=== PATIENT | female | born 1965 | race Two or more races ===

== ENCOUNTER 2024-08-19 09:35 | Inpatient (IN) | payer MEDICAID, OTHER ==
[~2024-08-19] VITALS: Ht 170.2 cm; Wt 77.7 kg
--- NOTE | 2024-08-19 09:50 | ED.PDOC ---
History of Present Illness HPI Comments 59F BIBA w/ prior Mhx of Asthma;SHx of Tonsillectomy, Bladder lift, Full Hysterectomy, Left foot Sx, right Artery Sx and the c/c of LE. Pt reports that she was praying, on her knees, and as she wastrying to get up she heard a pop on the right knee, which all happened at 0850 today. EMS note that initially on scene the pt had a pain of 20/10, but was given 500mg IM and brought the pain down to a 10/10. Family Hx of Cancer. Denies chills, fever, N/V/D, SOB, CP. No other associated symptoms, modifiers, recent injuries or sick contacts present at this time. Time Seen by MD: 09:40 Reviewed Notes: Nurses Notes, Java Web Architect Notes, Medications, Allergies Allergies: Coded Allergies: Hydrocodone (Verified Allergy, Unknown, 08/19/24) Information Source: Patient, Emergency Med Personnel Mode of Arrival: EMS Severity: Moderate Timing: Minutes Duration: Since onset, Minutes Prehospital treatment: Pain Meds (500mg of Fent) Past Medical History PAST MEDICAL HISTORY: Asthma Surgical History: Hysterectomy (Full), Tonsillectomy Surgical History (Other): Bladder Lift, "Right Side Artery Sx", Left foot Sx TOOL SUPERVISOR History: No Pertinent TOOL SUPERVISOR History Family History Family History: Reviewed,noncontributory to illness, Family hx of Cancer Social History Smoker: Non-Smoker Alcohol: Denies ETOH Use Drugs: Denies Drug Use Lives In: Home Constitutional: reports: others (Right knee pain); denies: chills, diaphoresis, fatigue, fever, malaise, sweats, weakness EENTM: denies: blurred vision, double vision, ear bleeding, ear discharge, ear drainage, ear pain, ear ringing, eye pain, eye redness, hearing loss, mouth pain, mouth swelling, nasal discharge, nose bleeding, nose congestion, nose pain, photophobia, tearing, throat pain, throat swelling, voice changes, others Respiratory: denies: cough, hemoptysis, orthopnea, SOB at rest, shortness of breath, SOB with excertion, stridor, wheezing, others Cardiovascular: denies: chest pain, dizzy spells, diaphoresis, Dyspnea on exertion, edema, irregular heart beat, left arm pain, lightheadedness, palpitations, PND, syncope, others Gastrointestinal: denies: abdomen distended, abdominal pain, blood streaked bowels, constipated, diarrhea, dysphagia, difficulty swallowing, hematemesis, melena, nausea, poor appetite, poor fluid intake, rectal bleeding, rectal pain, vomiting, others Genitourinary: denies: abnormal vagina bleeding, burning, dyspareunia, dysuria, flank pain, frequency, hematuria, incontinence, pain, , vagina discharge, urgency, others Neurological: denies: dizziness, fainting, headache, left sided numbness, left sided weakness, numbness, paresthesia, pre-existing deficit, right sided numbness, right sided weakness, seizure, speech problems, tingling, tremors, weakness, others Musculoskeletal: reports: joint pain, joint swelling; denies: back pain, gout, muscle pain, muscle stiffness, neck pain, others Integumetry: denies: bruises, change in color, change in hair/nails, dryness, laceration, lesions, lumps, rash, wounds, others Allergic/Immunocompromised: denies: Difficulty Healing, Frequent Infections, Hives, Itching, others Hematologic/Lymphatic: denies: anemia, blood clots, easy bleeding, easy bruising, swollen glands, others Endocrine: denies: excessive hunger, excessive sweating, excessive thirst, excessive urination, flushing, intolerance to cold, intolerance to heat, unexplained weight gain, unexplained weight loss, others Psychiatric: denies: anxiety, bipolar disorder, depression, hopeless, panic disorder, schizophrenia, sleepless, suicidal, others All Other Systems: Reviewed and Negative Physical Exam General Appearance: Moderate Distress HEENT: Normal ENT Inspection, Pharynx Normal, TMs Normal Neck: Full Range of Motion, Non-Tender, Normal, Normal Inspection Respiratory: Chest Non-Tender, Lungs Clear, No Accessory Muscle Use, No Respiratory Distress, Normal Breath Sounds Cardiovascular: No Edema, No JVD, No Murmur, No Gallop, Normal Peripheral Pulses, Regular Rate/Rhythm Breast Exam: Deferred Gastrointestinal: No Organomegaly, Non Tender, No Pulsatile Mass, Normal Bowel Sounds, Soft Genitalia: Deferred Pelvic: Deferred Rectal: Deferred Extremities: No calf tenderness, Normal capillary refill, No pedal edema Musculoskeletal : Location: Right Extremity Location: Knee Apperance: Swelling, Limited ROM, Tenderness: Severe Neurologic: Alert, machined parts quality inspector II-XII nml as Tested, No Motor Deficits, Normal Affect, Normal Mood, No Sensory Deficits Cerebellar Function: Normal Reflexes: Normal Skin: Dry, Normal Color, Warm Lymphatic: No Adenopathy Was a procedure done? Was a procedure done?: No Differential Dx Considerations may include: Fracture, strain, dislocation, contusion X-Ray, Labs, Meds, VS Vital Signs Date Time Temp Pulse Resp B/P (MAP) Pulse Ox O2 Delivery O2 Flow Rate FiO2 08/19/24 15:01 70 12 101/57 (72) 97 08/19/24 14:25 66 14 113/70 08/19/24 13:43 72 15 113/70 08/19/24 12:00 69 08/19/24 11:50 68 12 116/79 08/19/24 11:16 98.0 70 18 107/74 (85) 96 98.0 08/19/24 11:16 70 20 98 Room Air* 0 21 08/19/24 11:08 67 20 107/74 08/19/24 09:48 98.1 77 16 165/100 (121) 98 98.1 Current Medications Medications (Trade) Dose Ordered Sig/Linda Route Start Time Stop Time Status Last Admin Morphine Sulfate 4 mg ONCE ONCE IV 08/19/24 09:45 08/19/24 09:46 DC 08/19/24 11:08 Ondansetron HCl (Zofran) 4 mg ONCE ONCE IV 08/19/24 09:45 08/19/24 09:46 DC 08/19/24 11:08 Hydromorphone HCl (Dilaudid Injection) 0.5 mg ONCE ONCE IV 08/19/24 13:15 08/19/24 13:16 DC 08/19/24 13:43 Ondansetron HCl (Zofran) 4 mg ONCE ONCE IV 08/19/24 13:15 08/19/24 13:16 DC 08/19/24 13:42 CAT scan of the right knee shows: IMPRESSION: 1. No acute fracture or traumatic malalignment. 2. Mild tricompartment osteoarthritis. 3. Trace joint effusion. [facility] An orthopedic consult will be obtained We attempted to give the patient morphine and Zofran for the pain but the pain is somewhat persistent. The patient was now being given Dilaudid IV push for the pain. At this time, the patient was now given Zofran 4 mg IV push At this time, the patient was being admitted. Images Reviewed?: Images reviewed and evaluated by me Time of 1ST Reevaluation: 10:10 Reevaluation 1ST: Unchanged Patient Education/Counseling: Diagnosis, Treatment, Prognosis Family Education/Counseling: No Family Present Departure 1 Departure Time of Disposition: 16:27 Impression: Primary Impression: Derangement of right knee Disposition: ADMITTED INPATIENT Admit to: Med Surg Condition: Fair Critical Care Note Critical Care Time?: No Stability Stability form required: Yes Unstable for transfer: ED Physician Assesment (Clinical assesment) Heart Score Heart Score: Heart Score Response (Comments) Value History N/A 0 EKG N/A 0 Age N/A 0 Risk Factors N/A 0 Troponin N/A 0 Total 0 I personally scribed for NEIL BARBOZA MD ([email or web address]) on 08/19/24 at 09:50. Electronically submitted by Mateo Carpenter ([email or web address]). NEIL BARBOZA MD August 19, 2024 09:50
[2024-08-19] MEDS: MORPHINE SULFATE 4 MG/ML SYR/VIAL IV ONE (11:08)
[2024-08-19] MEDS: ONDANSETRON HCL 4 MG/2 ML VIAL IV ONE ×2 (11:08→13:42)
[2024-08-19 11:16] VITALS: PULSE 70; RESP 20; O2SAT 98
--- NOTE | 2024-08-19 11:20 | DVH ---
INDICATION: right knee pain COMPARISON: None TECHNIQUE: CT of the right knee was performed without contrast. Volume transverse images were obtain ed and reconstructed in multiple planes using bone and soft tissue algorithms. All CT scans at this medical facility are performed using dose modulation techniques as appropriate t o a performed exam including the following: Automated exposure control was utilized; adjustment of th e MA and/or KV according to patient size; and use of iterative reconstruction technique. CONTRAST: None Radiation Dose Information: CTDI volume is 25.05 mGy. Dose-length product is 990.75 mGy*cm FINDINGS: Normal mineralization and alignment. Joint spaces preserved. There is no acute fracture. Minimal tri compartment osteophyte formation. Very mild degenerative medial and lateral compartment joint space n arrowing. The Muscle bundles about the right knee are intact. Trace joint effusion. The tendons and l igaments are grossly intact although not optimally evaluated by CT. IMPRESSION: 1. No acute fracture or traumatic malalignment. 2. Mild tricompartment osteoarthritis. 3. Trace joint effusion.
[2024-08-19] MEDS: HYDROmorphone HCL 2 MG/ML VL/or syr IV ONE (13:43)
[2024-08-19] MEDS ORDERED: ONDANSETRON HCL 4 MG/2 ML VIAL IV PRN (16:15)
[2024-08-19] MEDS ORDERED: MORPHINE SULFATE INJ 2 MG/ml SYRG IV PRN (16:15)
[2024-08-19] MEDS ORDERED: NITROGLYCERIN 0.4 MG SL TAB SL PRN (16:15)
[2024-08-19] MEDS ORDERED: HYDROcodone-ACET 5/325MG TAB PO PRN (16:15)
[2024-08-19 18:39] VITALS: BP 149/83; PULSE 87; RESP 18; TEMP 98.3; O2SAT 98
[2024-08-19 20:00] VITALS: PULSE 69; RESP 16; O2SAT 98
[2024-08-19 21:00] VITALS: BP 152/83; PULSE 69; RESP 16; TEMP 98; O2SAT 98
[2024-08-19] MEDS: MORPHINE SULFATE INJ 2 MG/ml SYRG IV PRN (21:01)
[2024-08-20] VITALS (16 sets, daily range): BP systolic 104–152; BP diastolic 67–85; PULSE 65–90; RESP 16–22; TEMP 98–98.8; O2SAT 95–100
[2024-08-20] MEDS: ALBUTEROL SULF 2.5 MG/0.5ML(0.5%) NEB SOLN NEB PRN (00:35)
--- NOTE | 2024-08-20 03:46 | DVHHP2 ---
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 Endorsed she kneeled down to pray and suddenly could not get back up. Pain is sharp 10/10. Endorses swelling tenderness to the knee. Was placed in an immobilizer in the emergency department. Patient denies any past medical history of osteoarthritis, traumatic knee injury or fall. Cardiovascular: CAD, hyperipidemia Pulmonary: Asthma Smoke: No ALCOHOL: none Drugs: None Lives: with Family Review of Systems Constitutional: No: Fever, Chills, Sweats, Weakness, Malaise, Other Eyes: No: Pain, Vision change, Conjunctivae inflammation, Eyelid inflammation, Other, Redness ENT: No: Ear pain, Ear discharge, Nose pain, Nose discharge, Nose congestion, Mouth pain, Mouth swelling, Throat pain, Throat swelling, Other Respiratory: No: Cough, Dry, Shortness of breath, SOB with excertion, Wheezing, Hemoptysis, Pleuritic Pain, Sputum, Wheezing, Other Cardiovascular: No: Chest Pain, Palpitations, Orthopnea, Paroxysmal Noc. Dyspnea, Edema, Lt Headedness, Other Gastrointestinal: No: Nausea, Vomiting, Abdominal Pain, Diarrhea, Constipation, Melena, Hematochezia, Other Genitourinary: No Dysuria, No Frequency, No Incontinence, No Hematuria, No Retention, No Other Musculoskeletal: leg pain; No: other, neck pain, shoulder pain, arm pain, back pain, hand pain, foot pain Skin: No: Rash, Lesions, Jaundice, Bruising, Other Neurological: No: Weakness, Numbness, Incoordination, Change in speech, Confusion, Seizures, Other Allergies: Coded Allergies: Hydrocodone (Verified Allergy, Unknown, 08/19/24) Medications Current Medications Medications Dose Ordered Sig/Linda Route Start Time Stop Time Status Last Admin Dose Admin Nitroglycerin 0.4 mg Q5MINP PRN SL 08/19/24 16:15 Morphine Sulfate 2 mg Q30M PRN IV 08/19/24 16:15 Acetaminophen/ Hydrocodone Bitart 1 tab Q4HPRN PRN PO 08/19/24 16:15 Morphine Sulfate 2 mg Q4HPRN PRN IV 08/19/24 16:15 5/4/25 21:01 2 MG Ondansetron HCl 4 mg Q6HPRN PRN IV 08/19/24 16:15 Acetaminophen 650 mg Q4HP PRN PO 08/19/24 16:15 Enoxaparin Sodium 40 mg DAILY SC 08/20/24 10:00 Future Hold Albuterol 2.5 mg Q4HPRN PRN NEB 08/20/24 00:30 08/20/24 00:35 2.5 MG Exam Vital Signs Vital Signs Date Time Temp Pulse Resp B/P (MAP) Pulse Ox O2 Delivery O2 Flow Rate FiO2 08/20/24 00:58 98.2 65 16 118/67 (84) 96 98.2 08/20/24 00:35 Nasal Cannula* 3 32 General Appearance: Alert, Oriented X3, Cooperative, mild distress HEENT: Atraumatic, PERRLA, EOMI Respiratory: Clear to auscultation, Normal air movement Cardiovascular: Regular rate, Normal S1, Normal S2 Abdominal: Normal bowel sounds, Soft, No tenderness Extremities: No clubbing, Normal pulses, Other (Knee in immobilizer. Mild swelling medially, tender to palpation medially) Skin: No rashes, No breakdown Neuro: Normal speech Psych/Mental Status: Mental status NL, Mood NL Assessment/Plan Assessment/Plan Right Knee pain Hx Asthma Plan Admit medical floor Ortho consult MRI rt knee As needed analgesia PT evaluation Bronchodilators. As needed supplemental O2 to maintain O2 saturation greater Than 93%. DVT ppx lovenox Plan discussed with: Patient My Orders Orders - FORD PERRY NP Procedure Category Date Status Time Albuterol Medneb PHA 08/20/24 In Process (Ventolin Medneb) 00:30 Date of Service: August 20, 2024 Billing Provider: FERNANDO DYER MD Common Visit Codes: NOT BILLABLE FERNANDO DYER MD 08/20/24 1628: Review of Systems Allergies: Coded Allergies: Hydrocodone (Verified Allergy, Unknown, 08/19/24) Assessment/Plan Assessment/Plan Patient's chart is reviewed and discussed with the nurse practitioner. Patient is seen and evaluated by me today. I agree with the nurse practitioner's evaluation, documentation, assessment and care plan as outlined. FORD PERRY NP August 20, 2024 03:46 FERNANDO DYER MD August 20, 2024 16:28
[2024-08-20] MEDS: ACETAMINOPHEN 325 MG TAB PO PRN (05:30)
[2024-08-20] MEDS ORDERED: ENOXAPARIN SOD 40 MG/0.4 ML SYRINGE SC SCH (10:00)
--- NOTE | 2024-08-20 11:28 | DVH ---
CLINICAL HISTORY: right knee pain COMPARISON: CT dated 08/19/2024. TECHNIQUE: Multisequence multiplanar MRI images of the right knee were obtained without contrast. FINDINGS: Cruciate ligaments: ACL and PCL are intact and otherwise unremarkable. Extensor mechanism: Quadriceps mechanism and patellar tendon are intact. [id number] edema in th e superolateral aspect of Hoffa's fat pad, may be sequela of impingement. Collateral ligaments: Mild edema and small amount of fluid along the superficial fibers of the medial collateral ligament, consistent with a grade 1 sprain in the appropriate clinical setting. Menisci: Intrasubstance signal in the body and posterior horn of the medial meniscus without definite extension to the articular surface to suggest tear, likely intrasubstance degeneration. Intrasubstan ce signal in the body and anterior horn of the lateral meniscus without visualized extension to the a rticular surface to suggest tear, likely intrasubstance degeneration. Cartilage: Chondral fraying [id number] fissuring of the weight-bearing zone of the medial femor al condyle. Chondral fraying and fissuring in the patella involving the median ridge. Chondral thinni ng of the lateral patellar facet with adjacent subchondral cystic change. Bones: No acute fracture or focal marrow contusion Joint fluid: Small joint effusion. Other: Motion artifact limits evaluation. Some sequences were repeated. IMPRESSION: 1. Motion artifact limits evaluation. 2. Findings consistent with grade 1 sprain of the MCL. 3. Intrasubstance degeneration in the medial and lateral menisci without visualized extension to the articular surface to suggest tear 4. Edema in the superolateral aspect of Hoffa's fat pad, may be sequela of impingement. 5. 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 6. Small joint effusion.
[2024-08-20 17:32] LABS: Basophils # (auto) 0 10 ^3/uL (0-0.2); Basophils % (auto) 0.6 % (0.0-2.0); Eosinophils # (auto) 0.1 10 ^3/uL (0-0.8); Eosinophils % (auto) 1.9 % (0.0-7.0); Hematocrit 41.7 % (36.0-46.0); Hemoglobin 14.1 g/dL (12.2-16.2); Lymphocytes # (auto) 2.2 10 ^3/uL (0.4-5.4); Mean Corpuscular Hemoglobin 29.5 pg (28.0-32.0); Mean Corpuscular Hgb Conc. 33.7 g/dL (32.0-36.0); Mean Corpuscular Volume 87.5 fL (80.0-100.0); Monocytes # (auto) 0.3 10 ^3/uL (0-1.3); Monocytes % (auto) 5.7 % (0.0-12.0); Neutrophils # (auto) 3.2 10 ^3/uL (1.6-8.6); Neutrophils % (auto) 53.8 % (37.0-80.0); Platelet Count (auto) 179 10^3/uL (140-450); Red Blood Cells 4.77 10^6/uL (4.0-5.20); Red Cell Distribution Width 14.6 % (11.8-14.3); White Blood Cell 5.9 10^3/uL (4.4-10.8)
[2024-08-20 17:49] LABS: Alanine Aminotransferase 24 U/L (7-40); Albumin 4.3 g/dL (3.2-4.8); Anion Gap 9 (5-15); Aspartate Aminotransferase 21 U/L (13-40); BUN/Creatinine Ratio 17.1 (10.0-20.0); Bilirubin, Total 0.5 mg/dL (0.2-1.0); Blood Urea Nitrogen 12 mg/dL (9-23); Calcium 9.8 mg/dL (8.7-10.4); Carbon Dioxide 24 mmol/L (20-31); Chloride 107 mmol/L (98-107); Glucose 104 mg/dL (74-106); Potassium 3.8 mmol/L (3.5-5.1); Sodium 140 mmol/L (136-145); Total Protein 6.9 g/dL (5.7-8.2)
[2024-08-20 18:31] LABS: Alkaline Phosphatase 118 U/L (46-116)
--- NOTE | 2024-08-20 20:32 | DVHINCON2 ---
Consult Note Consult Consult Note Patient: 59-year-old female Reason for Consult: Right knee pain following mechanical injury --- History of Present Illness: Patient is a 59-year-old female admitted under the inpatient medicine service who was evaluated today by the orthopedic consult service for right knee pain. The patient reports that the pain started after kneeling to pray and attempting to stand, during which she experienced a pop in her right knee followed by acute pain. She localizes the majority of the pain to the medial aspect of the knee with some anterior involvement as well. She denies any sensation of instability, locking, or catching. No prior similar injuries reported. No other joint pain, No numbness/tingling or LE weakness reported. --- Review of Systems: Musculoskeletal: Right knee pain as above Neurologic: Denies numbness or tingling Constitutional: No fevers or chills --- Physical Exam: Inspection: Mild swelling noted in the right knee Palpation: Tenderness over medial joint line, lateral joint line, and retropatellar region. Point tenderness noted along the MCL Range of Motion: Within functional limits, mildly painful with flexion Special Tests: SLR: Intact against gravity Patellar tendon: Intact Ligamentous: LCL, MCL, PCL stable on valgus/varus and posterior drawer testing b ut TTP MCL Origin and insertion aspect Martin: Positive on the medial side Neurovascular: Distal pulses palpable, sensation intact MRI Right knee : Findings consistent with grade 1 sprain of the MCL. Intrasubstance degeneration in the medial and lateral menisci without visualized extension to the articular surface to suggest tear,edema in the superolateral aspect of Hoffa's fat pad, may be sequela of impingement.[id number] chondromalacia of the medial and patellofemoral compartments.Small joint effusion. CT Right knee : tricompartmental Knee OA --- Impression: Right knee pain, likely internal derangement. Positive Martin and medial joint line tenderness raise concern for medial meniscus tear. Ligamentous exam otherwise stable. Given the acute mechanism and exam findings, a meniscal injury is most likely. Alos, TTP MCL aspect raises concerns for MCL Sprain. --- Plan: Continue activity modification and NSAIDs as needed for pain Recommend knee Hinge brace for support as tolerated, WBAT W/ crutches Outpatient follow-up with orthopedic clinic within 12 weeks or sooner based on imaging Physical therapy to be considered once pain improves Pain management per Hospitalist /Medicine team --- Plan discussed with: Patient, Other (bedside nurse) Visit Coding Surgery Date of Service if different f: August 20, 2024 Billing Provider: IVIS WISEMAN Surgery Visit Codes: 76325 - INP CONSULT <55 MIN IVIS WISEMAN August 20, 2024 20:32
[2024-08-21] VITALS (12 sets, daily range): BP systolic 111–133; BP diastolic 74–80; PULSE 73–84; RESP 16–22; TEMP 97.9–98.5; O2SAT 93–99
[2024-08-21] MEDS ORDERED: FAMO-161 PO (10:30)
[2024-08-21] MEDS ORDERED: IBUP-1454 PO (10:30)
[2024-08-21] MEDS ORDERED: HYDR-4902 PO (10:30)
[2024-08-21] MEDS ORDERED: NALO4SPR2 (10:30)
--- NOTE | 2024-08-21 10:32 | DVHDS2 ---
Discharge Summary Date of Admission August 19, 2024 at 16:01 Date of Discharge: August 21, 2024 Labs/Diagnostic Data: Laboratory Results Test 08/20/24 17:23 White Blood Count 5.9 10^3/uL (4.4-10.8) Red Blood Count 4.77 10^6/uL (4.0-5.20) Hemoglobin 14.1 g/dL (12.2-16.2) Hematocrit 41.7 % (36.0-46.0) Mean Corpuscular Volume 87.5 fL (80.0-100.0) Mean Corpuscular Hemoglobin 29.5 pg (28.0-32.0) Mean Corpuscular Hemoglobin Concent 33.7 g/dL (32.0-36.0) Red Cell Distribution Width 14.6 % (11.8-14.3) Platelet Count 179 10^3/uL (140-450) Mean Platelet Volume 7.9 fL (6.9-10.8) Neutrophils (%) (Auto) 53.8 % (37.0-80.0) Lymphocytes (%) (Auto) 38.0 % (10.0-50.0) Monocytes (%) (Auto) 5.7 % (0.0-12.0) Eosinophils (%) (Auto) 1.9 % (0.0-7.0) Basophils (%) (Auto) 0.6 % (0.0-2.0) Neutrophils # (Auto) 3.2 10 ^3/uL (1.6-8.6) Lymphocytes # (Auto) 2.2 10 ^3/uL (0.4-5.4) Monocytes # (Auto) 0.3 10 ^3/uL (0-1.3) Eosinophils # (Auto) 0.1 10 ^3/uL (0-0.8) Basophils # (Auto) 0 10 ^3/uL (0-0.2) Nucleated Red Blood Cells 0.0 % Sodium Level 140 mmol/L (136-145) Potassium Level 3.8 mmol/L (3.5-5.1) Chloride Level 107 mmol/L (98-107) Carbon Dioxide Level 24 mmol/L (20-31) Anion Gap 9 (5-15) Blood Urea Nitrogen 12 mg/dL (9-23) Creatinine 0.70 mg/dL (0.550-1.02) Glomerular Filtration Rate Calc 100 mL/min (>90) BUN/Creatinine Ratio 17.1 (10.0-20.0) Serum Glucose 104 mg/dL (74-106) Calcium Level 9.8 mg/dL (8.7-10.4) Total Bilirubin 0.5 mg/dL (0.2-1.0) Aspartate Amino Transferase (AST) 21 U/L (13-40) Alanine Aminotransferase (ALT) 24 U/L (7-40) Alkaline Phosphatase 118 U/L (46-116) Total Protein 6.9 g/dL (5.7-8.2) Albumin 4.3 g/dL (3.2-4.8) Other Laboratory Tests 08/20/24 17:23 Brief Hx & Hospital Course: 59-year-old female with past medical history CAD, hyperlipidemia, hypertension, asthma presents with complaints of a right knee injury x1 day. Endorsed she kneeled down to pray and suddenly could not get back up. Pain is sharp 10/10. Endorses swelling tenderness to the knee. Was placed in an immobilizer in the emergency department. Patient denies any past medical history of osteoarthritis, traumatic knee injury or fall. She is admitted and evaluated by Orthopedic surgery. Patient had MRI of the knee showed a grade 1 MCL sprain. Patient has had knee brace/immobilizer per orthopedic recommendations. Patient had crutches as well as front wheel walker for physical therapy recommendations. Overall patient clinically stable. Ambulating with a walker and pain has improved. Patient prescribed pain medications and felt stable to be discharged home with close outpatient follow up with the orthopedic surgeon. I have talked with the patient regarding this, her MRI findings, discharge medications, discharge instructions and follow-up plan of care. She has verbalized understanding of these and agree with the care plan as outlined. Consults/Reason for consult Impression: Right knee pain, likely internal derangement. Positive Martin and medial joint line tenderness raise concern for medial meniscus tear. Ligamentous exam otherwise stable. Given the acute mechanism and exam findings, a meniscal injury is most likely. Alos, TTP MCL aspect raises concerns for MCL Sprain. --- Plan: Continue activity modification and NSAIDs as needed for pain Recommend knee Hinge brace for support as tolerated, WBAT W/ crutches Outpatient follow-up with orthopedic clinic within 12 weeks or sooner based on imaging Physical therapy to be considered once pain improves Pain management per Hospitalist /Medicine team --- Plan discussed with: Patient, Other (bedside nurse) Visit Coding Surgery Date of Service if different f: August 20, 2024 Billing Provider: IVIS WISEMAN Surgery Visit Codes: 15050 - INP CONSULT <55 MIN IVIS WISEMAN August 20, 2024 20:32 Operations or Procedures ORDER NUMBER(s): [id number], ACCESSION NUMBER(s): [id number] CLINICAL HISTORY: right knee pain COMPARISON: CT dated 08/19/2024. TECHNIQUE: Multisequence multiplanar MRI images of the right knee were obtained without contrast. FINDINGS: Cruciate ligaments: ACL and PCL are intact and otherwise unremarkable. Extensor mechanism: Quadriceps mechanism and patellar tendon are intact. Rheo-vs-[id number] edema in the superolateral aspect of Hoffa's fat pad, may be sequela of impingement. Collateral ligaments: Mild edema and small amount of fluid along the superficial fibers of the medial collateral ligament, consistent with a grade 1 sprain in the appropriate clinical setting. Menisci: Intrasubstance signal in the body and posterior horn of the medial meniscus without definite extension to the articular surface to suggest tear, likely intrasubstance degeneration. Intrasubstance signal in the body and anterior horn of the lateral meniscus without visualized extension to the articular surface to suggest tear, likely intrasubstance degeneration. Cartilage: Chondral fraying [id number] fissuring of the weight-bearing zone of the medial femoral condyle. Chondral fraying and fissuring in the patella involving the median ridge. Chondral thinning of the lateral patellar facet with adjacent subchondral cystic change. Bones: No acute fracture or focal marrow contusion Joint fluid: Small joint effusion. Other: Motion artifact limits evaluation. Some sequences were repeated. IMPRESSION: 1. Motion artifact limits evaluation. 2. Findings consistent with grade 1 sprain of the MCL. 3. Intrasubstance degeneration in the medial and lateral menisci without visualized extension to the articular surface to suggest tear 4. Edema in the superolateral aspect of Hoffa's fat pad, may be sequela of impingement. 5. 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 6. Small joint effusion. ATED BY: RICH BURK DO DICTATED DATE/TIME: 08/20/24 1126 Condition at Discharge: Stable Final Diagnosis/Problems List Right knee pain with a grade 1 MCL sprain Discharge Disposition: Home Discharge Instruct/Medications Diet: Consistent carbohydrate, Cardiac 2g Na,low cholest Activity: See Comment Activity comment: Weight-bearing as tolerated with crutches Follow Up/Referral: Orthopedic physician Dr. Augustine Gutierrez in his clinic in 1-2 weeks for knee sprain follow up and primary care physician one week for further pain management for knee pain. Medications: As prescribed New Medications: Famotidine (Pepcid AC) 20 Mg Tab 20 MG PO DAILY, #14 TAB Hydrocodone-Acetaminophen (Hydrocodone Bitartrate/AC 5-325 mg) 1 Tab Tab 1 TAB PO Q6HPRN PRN, #14 TAB Ibuprofen (Ibuprofen) 600 Mg Tab 1 TAB PO TID, #30 TAB Naloxone HCl (Narcan) 4 Mg/0.1 Ml Spr 4 MG NA Q5MINP PRN, #1 SPRAY Discharge Statement: "Patient was advised to return to the ER or call 911 if any headaches, dizziness, shortness of breath, chest pain, abdominal pain, bleeding, fevers, or worsening of medical condition. Patient was counseled about treatment plan, medications, possible side effects, patientverbalized understanding. All questions were answered to the best of my ability. This discharge took greater then 30 minutes in planning, reviewing documentation, counseling the patient, and discussing with other team members." ASSESSMENT ASSESSMENT Assessment Right knee sprain FERNANDO DYER MD August 21, 2024 10:32
== END 2024-08-21 13:45 | disposition home or self-care (01) | DRG 351 ==
LOC: EDBD 09:35 → ER 09:35 → OVERFLOW 16:01 → EAST 18:14
PROVIDERS: ADMIT Hospitalist; ATTEND Hospitalist
DX: S83.411A Sprain of medial collateral ligament of right knee, initial encounter (principal); E78.5 Hyperlipidemia, unspecified; M23.91 Unspecified internal derangement of right knee; I10 Essential (primary) hypertension; I25.10 Atherosclerotic heart disease of native coronary artery without angina pectoris; J45.909 Unspecified asthma, uncomplicated; M17.11 Unilateral primary osteoarthritis, right knee; X58.XXXA Exposure to other specified factors, initial encounter; Y93.89 Activity, other specified; Y92.89 Other specified places as the place of occurrence of the external cause; Y99.8 Other external cause status; Z88.5 Allergy status to narcotic agent; Z90.710 Acquired absence of both cervix and uterus
CPT/HCPCS: 36415; 73700; 73721; 80053; 85025; 94640; 96374; 96375; 97163; G0378; J2405